=== PATIENT | male | born 1980 | race Caucasian/White ===

== ENCOUNTER 2023-09-18 06:14 | Day surgery (SDC) | payer OTHER, SELFPAY ==
--- NOTE | 2023-07-09 13:18 | CM ---
Addendum entered by Ling Lewis 09/03/23 09:13:
Patient's surgery date has changed to 09/18/23.
Original Note:
Patient is scheduled for lumbar spine surgery on 07/17/23. Spoke with patient prior to surgery via telephone. Introduced role of the Orthopedic Navigator. Patient reports that he lives with his and three sons in a two story home. There are two
steps to enter and a flight of steps to the second floor. He currently functions independently. He has a back brace. He has never had VN services. PCP is Fariba Rhodes.
Discussed orthopedic program, post surgical plans and tentative plan for patient to return home when directed by surgeon. Patient is in agreement with tentative plan and will have support from his when he goes home.
Plan: Orthopedic Navigator will remain available to assist with the care of patient and will reassess discharge needs after surgery.
[2023-07-11 10:53] LABS: Hematocrit 43.3 % (39.0-52.0); Hemoglobin 14.8 g/dL (13.0-18.0); Mean Corp Hgb Conc. 34.2 g/dL (33.0-37.0); Mean Corpuscular Hgb 28.5 pg (27.0-31.0); Mean Corpuscular Volume 83.3 fL (80.0-94.0); Mean Platelet Volume 9.5 fL (7.4-10.4); Platelet Count 241 10^3/uL (130-400); Red Cell Dist. Width 13.8 % (11.5-14.5); White Blood Cell Count 5.8 10^3/uL (4.8-10.8)
[2023-07-11 11:03] LABS: ALT (SGPT) 49 U/L (0-50); AST (SGOT) 47 U/L (17-59); Albumin 4.2 g/dl (3.5-5.0); Alkaline Phosphatase 58 U/L (38-126); Blood Urea Nitrogen 17 mg/dl (9-20); Calcium 9.2 mg/dl (8.4-10.2); Carbon Dioxide 26 mmol/L (22-30); Chloride 100 mmol/L (98-107); Glucose 62 mg/dl (70-99); INR 0.95; PT 12.9 Sec (11.4-14.6); Potassium 4.5 mmol/L (3.5-5.1); Sodium 135 mmol/L (135-145); Total Bilirubin 0.8 mg/dl (0.2-1.3); Total Protein 7.2 g/dl (6.3-8.2); eGFR > 60.00
[2023-07-11 12:31] VITALS: BMI 29.3
[2023-07-11 15:25] VITALS: BMI 29.3
--- NOTE | 2023-07-16 08:24 | W.PREADMORTH ---
Ortho Preadmission Testing
-
Surgery cancelled for 07/17/23 due to insurance issues.
--- NOTE | 2023-09-07 13:53 | HPS.HSE ---
Family Physician
<Corrie Stevens PA-C - Last Filed: 09/07/23 13:59>
-
Family Physician: Fariba Rhodes DO
Chief Complaint
<Corrie Stevens PA-C - Last Filed: 09/07/23 13:59>
-
Lumbar disc herniation with radiculopathy.
History of Present Illness
43 yo male presenting today for a lumbar disc herniation with radiculopathy.
The patient reports a longstanding history of low back pain with
radiating right lower extremity pain secondary to this diagnosis. He
notes that his current pain is greatly interfering with his activities of
daily living and is overall impacting his quality of life. He has tried and
failed multiple conservative treatment measures in the past for his
pain. These conservative treatment measures include self-therapeutic
exercises, activity modification, medical management with Tylenol
and Meloxicam as needed, and the application of ice and/or heat.
Recent MRI findings of the lumbar spine confirmed a L4-L5 right
foraminal disc bulge with mild to moderate right foraminal stenosis.
He was determined to be in need of an L3-L4 laminectomy and
discectomy. He denies any current complaints today such as chest
pain, shortness of breath, palpitations, nausea, vomiting, diarrhea,
lightheadedness, dizziness, cough, sore throat, or fever.
�
<Myranda Quintana DO - Last Filed: 09/16/23 12:10>
History of Present Illness
43 yo male presenting today for a lumbar disc herniation with radiculopathy.
The patient reports a longstanding history of low back pain with
radiating right lower extremity pain secondary to this diagnosis. He
notes that his current pain is greatly interfering with his activities of
daily living and is overall impacting his quality of life. He has tried and
failed multiple conservative treatment measures in the past for his
pain. These conservative treatment measures include self-therapeutic
exercises, activity modification, medical management with Tylenol
and Meloxicam as needed, and the application of ice and/or heat.
Recent MRI findings of the lumbar spine confirmed a L4-L5 right
foraminal disc bulge with mild to moderate right foraminal stenosis.
He was determined to be in need of an L4-L5 laminectomy and
discectomy. He denies any current complaints today such as chest
pain, shortness of breath, palpitations, nausea, vomiting, diarrhea,
lightheadedness, dizziness, cough, sore throat, or fever.
�
Medical History
<Corrie Stevens PA-C - Last Filed: 09/07/23 13:59>
Past Medical History
Past Medical History: Reports Other (see below)
Additional Past Medical History:
1. Lumbar herniated disc with radiculopathy.
2. Sinus bradycardia, asymptomatic.
3. PVCs with occasional palpitations.
4. Bicuspid aortic valve, asymptomatic.
5. Mild aortic insufficiency.
6. GERD.
7. Hiatal hernia.
8. Hemorrhoids, status post hemorrhoidal banding.
9. Hypothyroidism.
10. Anxiety.
11. Hypoglycemia.
12. History of tobacco abuse.
�
�
Past Surgical History: Reports Other (see below)
Additional Past Surgical History:
1. Left shoulder arthroscopy.
2. Hemorrhoidal banding.
3. Vasectomy.
4. Endoscopy.
Social History
Tobacco: Former Smoker
Alcohol: None
Family History
Family History: Not pertinent
Allergies / Home Medications
Allergies reflects when Allergies were last updated in [facility].
Home Medications with original date entered in [facility]
Allergy/Medication List:
MEDICATIONS:
1. Cetirizine 10 mg p.o. every evening.
2. Cholecalciferol 50 mcg p.o. daily.
3. Nexium 40 mg p.o. daily.
4. Famotidine 40 mg p.o. at bedtime.
5. Finasteride 1 mg p.o. daily.
6. Gabapentin 300 mg p.o. twice a day as needed.
7. Lorazepam 0.5-1 mg p.o. daily as needed.
8. Low thyroid medication one tablet p.o. daily.
9. Magnesium 250 mg p.o. every evening.
10. Meloxicam 15 mg p.o. daily as needed.
11. Multivitamin one tablet p.o. daily.
12. Testosterone 0.6 mL subcu every 72 hours.
�
ALLERGIES:� Seasonal. No known drug allergies.
Review of Systems
<Corrie Stevens PA-C - Last Filed: 09/07/23 13:59>
-
A 12 point ROS was completed and negative except as noted: Yes
Physical Exam
<Corrie Stevens PA-C - Last Filed: 09/07/23 13:59>
Vital Signs
VSS
Physical Exam
General: Well Developed and Well Nourished
HEENT: NormoCephalic
Respiratory: Clear
Cardiac: S1/S2 and Regular Rhythm
GI: Soft, Non Tender and Normal Bowel Sounds
Musculoskeletal: Other (EXTREMITIES/BACK EXAM: Lower back with normal appearance. No visible or palpable masses. No step-offs. He does have minimal low back tenderness to palpation. Positive straight leg raise on the right. 5/5 strength of the right
hip flexors and quadriceps. 5/5 strength all other muscle groups. Deep ten)
Neuro: Awake, AO x 3 and Cranial Nerves Intact
Laboratory Results
<Corrie Stevens PA-C - Last Filed: 02/02/24 13:59>
-
Laboratory Results
PT 12.9 Sec (11.4-14.6) 07/11/23 09:56
INR 0.95 07/11/23 09:56
Total Bilirubin 0.8 mg/dl (0.2-1.3) 07/11/23 09:56
AST 47 U/L (17-59) 07/11/23 09:56
ALT 49 U/L (0-50) 07/11/23 09:56
Alkaline Phosphatase 58 U/L (38-126) 07/11/23 09:56
Impression/Plan
<Corrie Stevens PA-C - Last Filed: 09/07/23 13:59>
-
EKG 07/11/2023: Normal sinus rhythm. Early repolarization.
�
Echocardiogram 08/15/2022: Ejection fraction 60-65 percent. Ascending
aorta is mildly dilated at 3.9 cm. A bicuspid aortic valve with peak
and mean gradients of 19 and 9 mmHg respectively. Aortic valve area
of 2.2 cm2. No hemodynamically significant aortic stenosis as the
DVI is 0.7. Mild aortic insufficiency,
�
CLEARANCES:
1. [facility] medical, Corey Henao PA-C, pending.
� � [facility] medical phone number: [phone].
2. Dental waived.
�
IMPRESSION/PLAN:
1. Lumbar herniated disc with radiculopathy in need of L3-L4
� � laminectomy and discectomy with Dr. Myranda Quintana.
� � The benefits and risks of the procedure have been explained to
� � the patient. The patient understands these risks and wishes to
� � proceed.
2. DVT prophylaxis: Bilateral sequential compression devices and
� � JOSTIN hose stockings. We will promote frequent and early
� � ambulation as tolerated during admission.
3. Hypoglycemia: An Accucheck will be ordered for the morning
� � of his procedure. The patient was advised to carry candy
� � or have juice nearby in the event he feels symptomatic.
Patient's phone number: [phone].
Patient's contact (Sheree Dailey - Spouse): [phone].
<Myranda Quintana, - Last Filed: 09/16/23 12:10>
-
EKG 07/11/2023: Normal sinus rhythm. Early repolarization.
�
Echocardiogram 08/15/2022: Ejection fraction 60-65 percent. Ascending
aorta is mildly dilated at 3.9 cm. A bicuspid aortic valve with peak
and mean gradients of 19 and 9 mmHg respectively. Aortic valve area
of 2.2 cm2. No hemodynamically significant aortic stenosis as the
DVI is 0.7. Mild aortic insufficiency,
�
CLEARANCES:
1. [facility], Corey Henao PA-C, pending.
� � [facility] phone number: [phone].
2. Dental waived.
�
IMPRESSION/PLAN:
1. Lumbar herniated disc with radiculopathy in need of L4-L5
� � laminectomy and discectomy with Dr. Myranda Quintana.
� � The benefits and risks of the procedure have been explained to
� � the patient. The patient understands these risks and wishes to
� � proceed.
2. DVT prophylaxis: Bilateral sequential compression devices and
� � JOSTIN hose stockings. We will promote frequent and early
� � ambulation as tolerated during admission.
3. Hypoglycemia: An Accucheck will be ordered for the morning
� � of his procedure. The patient was advised to carry candy
� � or have juice nearby in the event he feels symptomatic.
Patient's phone number: [phone].
Patient's contact (Sheree Dailey - Spouse): [phone].
[2023-09-07 14:05] VITALS: BMI 29.3
[2023-09-07 14:23] LABS: Hematocrit 42.5 % (39.0-52.0); Hemoglobin 14.3 g/dL (13.0-18.0); Mean Corp Hgb Conc. 33.6 g/dL (33.0-37.0); Mean Corpuscular Hgb 27.9 pg (27.0-31.0); Mean Corpuscular Volume 82.8 fL (80.0-94.0); Mean Platelet Volume 9.6 fL (7.4-10.4); Platelet Count 272 10^3/uL (130-400); Red Blood Cell Count 5.13 10^6/uL (4.70-6.10); Red Cell Dist. Width 13.2 % (11.5-14.5); White Blood Cell Count 6.8 10^3/uL (4.8-10.8)
[2023-09-07 14:31] LABS: INR 1.01; PT 13.1 Sec (11.4-14.6)
[2023-09-07 14:46] LABS: ALT (SGPT) 30 U/L (0-50); AST (SGOT) 32 U/L (17-59); Albumin 3.8 g/dl (3.5-5.0); Alkaline Phosphatase 52 U/L (38-126); Blood Urea Nitrogen 18 mg/dl (9-20); Calcium 9.3 mg/dl (8.4-10.2); Carbon Dioxide 29 mmol/L (22-30); Chloride 99 mmol/L (98-107); Estimated Creatinine Clearance 115 ml/min; Glucose 88 mg/dl (70-99); Potassium 4.5 mmol/L (3.5-5.1); Sodium 135 mmol/L (135-145); Total Bilirubin 0.6 mg/dl (0.2-1.3); Total Protein 6.9 g/dl (6.3-8.2); eGFR > 60.00
[2023-09-07 15:30] VITALS: BMI 29.3
[2023-09-18] VITALS (14 sets, daily range): BP systolic 65–145; BP diastolic 42–90; PULSE 72; BMI 29.3
[2023-09-18 07:22] LABS: Glucose - Point of Care 86 mg/dl (70-99)
[2023-09-18] MEDS: NORMOSOL-R 1000 IV ×3 (07:27→23:17)
--- NOTE | 2023-09-18 12:24 | W.PN.UPDATE ---
Update Note
Progress Note Update
Orthopedic Surgery Post-Operative Update Note:
Patient is status post L4-5 laminectomy with microdiscectomy and foraminotomy. He is currently in PACU, moving all extremities, wiggling toes. Sensation grossly intact in lower extremity.
Plan:
May ambulate once in his room with assistance. PT/OT.
LSO (back brace) when ambulating
No bending, lifting or twisting
Post-op antibiotics
Pain control
DVT ppx: SCDs, no anticoagulation for 24 hrs post op
Bowel regimen
Myranda Quintana DO
Orthopedic Surgery
[2023-09-18] MEDS: DILAUDID 0.25 MG IV ×2 (12:50→12:56)
--- NOTE | 2023-09-18 13:49 | PTCARENOTE ---
Pt arrived to 2S in bed. Full assessment completed. B/L upper and lower neurovascular assessment WDL. Lower back DSG C/D/I. IVF initiated. Telemetry applied. Bed locked and in the lowest position, safety maintained. Oriented to room and call beltran.
[2023-09-18] MEDS: ANCEF 5 IV ×2 (15:03→23:17)
[2023-09-18] MEDS: ULTRAM 50 MG PO ×3 (15:04→23:18)
[2023-09-18] MEDS: SKELAXIN 800 MG PO ×2 (15:04→23:17)
[2023-09-18] MEDS: ZYRTEC 10 MG PO (17:00)
[2023-09-18] MEDS: TYLENOL 1000 MG PO ×2 (17:00→23:17)
[2023-09-18] MEDS: ROXICODONE 5 MG PO (18:21)
[2023-09-18] MEDS: LYRICA 75 MG PO (20:30)
[2023-09-18] MEDS: SENOKOT 17.1999999999999993 MG PO (20:31)
[2023-09-18] MEDS: COLACE 100 MG PO (20:31)
[2023-09-18] MEDS: ATIVAN 0.5 MG PO (20:32)
[2023-09-18] MEDS: PEPCID 40 MG PO (20:45)
--- NOTE | 2023-09-18 20:51 | OR.RPT ---
Operative Report
Operative Report
Orthopedic Surgery Operative Report
Date of Surgery: 09/18/23
PREOPERATIVE DIAGNOSES:
1. Lumbar right lateral recess and foraminal stenosis with radiculopathy, L4-L5
POSTOPERATIVE DIAGNOSES:
1. Lumbar right lateral recess and foraminal stenosis with radiculopathy, L4-L5
PROCEDURE PERFORMED:
1. L4-5 laminectomy and right lateral recess decompression with microdiscectomy and right foraminotomy
SURGEON: Myranda Quintana D.O.
SUPERVISOR TWISTING DEPARTMENT: TOY Schmidt, who helped with patient and limb positioning and retraction
ANESTHESIA: General endotracheal
COMPLICATIONS: None
ESTIMATED BLOOD LOSS: 30 cc
DRAINS: None
SPECIMEN: L4-5 disc material sent to pathology
IMPLANTS: None
INDICATION FOR SURGERY: This patient has an ongoing history of right lower extremity radiculopathy as well as subjective weakness when participating in high impact activities. Evaluation shows that the patient has the aforementioned diagnoses. The
patient has failed extensive nonsurgical treatment and has elected to undergo the aforementioned surgical procedures. The risks, benefits, alternatives, and indications were discussed with the patient in detail. The risks include, but are not
limited to bleeding requiring transfusion, infection, need for reoperation, nerve or blood vessel damage, anesthetic risks, need for further surgery, continued pain, blood clots in the legs, heart attack, stroke, , dural tear, nerve root
injury, graft migration, pseudoarthrosis, continued pain, continued numbness, continued weakness, paralysis. The patient understands the risks and elected to proceed. Informed consent was obtained preoperatively. The patient was optimized
medically prior to surgery.
PROCEDURE IN DETAIL: The patient was identified in the preoperative holding area. The surgical site was appropriately marked. The patient was then brought to the operating room. General endotracheal anesthesia was achieved. The patient was
given routine preoperative intravenous antibiotics. The patient was turned to the prone position. Great care was taken to pad and protect all extremities and pressure points. The incision site was marked using fluoroscopy. The patient was prepped
and draped in the usual sterile manner. A preoperative surgical time-out was taken.
A standard midline approach to the lumbar spine was performed. The dissection was carried out to the spinal lamina. Dissection was then carried out laterally to expose the medial aspect of the right L4-5 facet. Xray was obtained to confirm levels.
Laminectomy was then carried out at L4-5. A partial right medial facetectomy was carried out. Hypertrophic ligamentum flavum was removed. Extensive scarred soft tissue was noted to be present in the right lateral recess. This tissue was carefully
freed and removed from the dura as well as the traversing and exiting nerve roots. This tissue was also present in the right L4-5 foramen. As much of this scarred tissue as could safely be removed from the foramen was removed. Additionally, a right
L4-5 foraminotomy was performed using Kerrison rongeurs. The thecal sac and traversing nerve root were retracted to visualize the disc space. The disc space was incised using a 15-blade. Disc material was then removed and sent to lab as a specimen.
After the offending disc was removed, the disc space was irrigated. The decompression was once again checked and the thecal sac, traversing root and exiting root were found to be adequately decompressed.
The surgical site was copiously irrigated. 40 mg of kennalog was placed over the thecal sac and nerve roots at L4-5. The muscle was approximated using vicryl suture. Fascia was closed using #1 stratafix suture. Vancomycin powder was placed. The deep
and superficial subcutaneous tissues were closed using vicryl suture. Skin was approximated with nehemias. A sterile dressing was placed. The patient was turned to the supine position and awoken from anesthesia. The patient tolerated the procedure
well with no immediate complications.
Throughout the surgery, neuromonitoring was used. All counts were correct at the end of the surgery.
Myranda Quintana D.O.
Orthopedic Surgery
[2023-09-19] MEDS: ULTRAM 50 MG PO ×2 (02:55→08:21)
[2023-09-19 03:00] VITALS: BP 113/64
[2023-09-19 06:21] LABS: Hemoglobin 12.8 g/dL (13.0-18.0)
[2023-09-19] MEDS: TYLENOL 1000 MG PO (06:24)
[2023-09-19 06:42] LABS: Blood Urea Nitrogen 14 mg/dl (9-20); Calcium 8.2 mg/dl (8.4-10.2); Carbon Dioxide 29 mmol/L (22-30); Chloride 105 mmol/L (98-107); Estimated Creatinine Clearance > 125 ml/min; Glucose 92 mg/dl (70-99); Potassium 4.3 mmol/L (3.5-5.1); Sodium 135 mmol/L (135-145); eGFR > 60.00
[2023-09-19 07:58] VITALS: BP 108/66
[2023-09-19] MEDS: SENOKOT 17.1999999999999993 MG PO (08:20)
[2023-09-19] MEDS: PROTONIX 40 MG PO (08:20)
[2023-09-19] MEDS: SKELAXIN 800 MG PO (08:20)
[2023-09-19] MEDS: ATIVAN 0.5 MG PO (08:21)
[2023-09-19] MEDS: LYRICA 75 MG PO (08:21)
[2023-09-19] MEDS: COLACE 100 MG PO (08:21)
[2023-09-19] MEDS: NORMOSOL-R 1000 IV (08:22)
--- NOTE | 2023-09-19 09:04 | CM ---
Reviewed chart and held rounds with PT, OT and RN. Patient had planned lumbar spine surgery with on 09/18/23. Met with patient at bedside. Confirmed information previously obtained for assessment and discussed discharge plans. Patient
continues to plan to return home at discharge. He will have support from his when he goes home. Reviewed that he will work with PT/OT this morning and that discharge needs will depend on his functional status. However, no needs currently
identified.
Patient has his back brace in room.
Patient will use [facility] pharmacy for discharge prescriptions.
[2023-09-19 09:21] VITALS: BP 132/79; PULSE 57; O2SAT 100
[2023-09-19 09:24] VITALS: BP 132/79; PULSE 56; O2SAT 100
--- NOTE | 2023-09-19 09:29 | PTOTSP ---
Pt is independent with bed mobility, transfers, and ambulation without an assistive device on level surface and elevations. No further skilled PT needs are identified. Ok for dc to home today from PT standpoint. PT will sign off.
--- NOTE | 2023-09-19 10:25 | W.PN.ORTHO ---
Today's Communication / Plan
-
d/c
Assessment
.
Distal Motor Intact: Yes
Dressing:
Clean, dry and intact.
Assessment:
L4-5 laminectomy and right lateral recess decompression with microdiscectomy and right foraminotomy
Plan
.
Surgery / Date: 09/18/23 Dr. Quintana
Activity:
Out of bed.
PT/OT
Discharge Plan: Home
Subjective
.
.:
Patient resting comfortably.
Vital Signs and Labs
.
Vital Signs and Labs:
Lab Results
09/19/23 05:13
09/19/23 05:13
Temp Pulse Resp BP Pulse Ox
97.6 F 60 18 108/66 99
09/19/23 07:58 09/19/23 07:58 09/19/23 07:58 09/19/23 07:58 09/19/23 07:58
PT 13.1 Sec (11.4-14.6) 09/07/23 13:15
INR 1.01 09/07/23 13:15
Physical Exam
-
HEENT: No pallor, cyanosis, or jaundice. Throat clear.
NECK: Supple. No JVD.
RESPIRATORY: Lungs clear to auscultation.
CVS: S1, S2 normal. RRR.� No murmur, rub or gallop.
ABDOMEN: Soft, non-tender. No distension. BS+/normal.
EXTREMITIES: strength equal, no calf pain with palpation
STAFFING CLERK: AOx3. No focal deficits. bell cleaner grossly intact
--- NOTE | 2023-09-19 10:26 | W.DS.TRANS ---
DC Summary - Elastic Tape Inserter
-
Discharge Instructions:
Sleep Apnea Risk Low
Discharge Diagnosis/Procedures L4-5 laminectomy and right lateral recess
decompression with microdiscectomy and right
foraminotomy-Dr. Quintana 09/18/23
Diet No restrictions
Activity No strenuous activity
Driving Restrictions No driving
Instructions:
Stand-Alone Forms: [facility] Lumbar Spine DC Instr
Changes to Home Medications: Yes
Discharge Medications:
DC Medications w/original date entered in [facility]
Low Thyroid Medication 1 tab PO DAILY 05/12/23
esomeprazole magnesium 40 mg capsule,delayed release (Nexium) 40 mg PO DAILY 05/12/23
finasteride 1 mg tablet (Propecia) 1 mg PO DAILY 05/12/23
Testerone 0.6 ml SC Q72H 07/10/23
cetirizine 10 mg tablet (Zyrtec) 10 mg PO QPM 07/10/23
cholecalciferol (vitamin D3) 50 mcg (2,000 unit) tablet (Vitamin D3) 50 mcg PO DAILY 07/10/23
famotidine 40 mg tablet 40 mg PO HS 07/10/23
magnesium 250 mg tablet 250 mg PO QPM 07/10/23
multivitamin 1 tab PO DAILY 07/10/23
lorazepam 1 mg tablet 0.5 - 1 mg PO DAILY PRN anxiety 07/11/23
gabapentin 300 mg capsule 300 mg PO BID PRN pain 09/04/23
mupirocin 2 % topical ointment 1 applic topical BID infection prevention #1 tube 09/07/23
Medical Marajuana 1 tab PO DAILYPRN PRN sleep 09/18/23
acetaminophen 325 mg capsule (Tylenol) 650 mg PO QID #2 caps 09/19/23
cyclobenzaprine 5 mg tablet 5 mg PO BID muscle pain/sleep #30 tabs 09/19/23
dexamethasone 4 mg tablet 4 mg PO BID inflammation #6 tabs 09/19/23
docusate sodium 100 mg capsule (Colace) 100 mg PO BID stool softner #1 cap 09/19/23
magnesium hydroxide 400 mg/5 mL oral suspension (Milk of Magnesia) 30 ml PO HS PRN Constipation #1 mL 09/19/23
oxycodone 5 mg tablet 5 - 10 mg PO Q6HPRN PRN 1 tab moderate-2 tabs severe pain #30 tabs 09/19/23
sennosides 8.6 mg tablet (Senokot) 17.2 mg PO BID laxative #2 tabs 09/19/23
Home Medication Changes
cyclobenzaprine 5 mg tablet 5 mg PO BID muscle pain/sleep #30 tabs 09/19/23
dexamethasone 4 mg tablet 4 mg PO BID inflammation #6 tabs 09/19/23
oxycodone 5 mg tablet 5 - 10 mg PO Q6HPRN PRN 1 tab moderate-2 tabs severe pain #30 tabs 09/19/23
Pending Results: No
[2023-09-19] MEDS: TYLENOL PO (12:13)
[2023-09-19] MEDS: ULTRAM PO (12:14)
== END 2023-09-19 12:36 | disposition home or self-care (01) ==
LOC: SDS 06:14
PROVIDERS: Physician Assistant Medical; ATTENDING PHYSICIAN Orthopaedic Surgery; FAMILY PHYSICIAN Family Medicine; OTHER PHYSICIAN Internal Medicine Cardiovascular Disease
DX: M48.061 Spinal stenosis, lumbar region without neurogenic claudication (principal); M54.16 Radiculopathy, lumbar region
CPT/HCPCS: 63030; 88304; 36415; 72100; 76000; 80048; 80053; 82962; 85014; 85018; 85027; 85610; 86850; 86900; 86901; 87070; 93005; 97161; 97165; 97530

== ENCOUNTER 2024-06-26 06:19 | Day surgery (SDC) | payer OTHER, SELFPAY | END 2024-06-26 15:51 | disposition home or self-care (01) | LOC: GI 06:19 | PROVIDERS: ATTENDING PHYSICIAN Internal Medicine | DX: Z12.11 Encounter for screening for malignant neoplasm of colon (principal); K64.8 Other hemorrhoids; K63.5 Polyp of colon | CPT/HCPCS: 45380; 88305 ==

== ENCOUNTER 2024-09-25 06:11 | Day surgery (SDC) | payer OTHER, SELFPAY | END 2024-09-25 10:22 | disposition home or self-care (01) | LOC: GI 06:11 | PROVIDERS: ATTENDING PHYSICIAN Internal Medicine | DX: R12 Heartburn (principal); R14.0 Abdominal distension (gaseous); K22.89 Other specified disease of esophagus; K44.9 Diaphragmatic hernia without obstruction or gangrene | CPT/HCPCS: 43239; 88305; 88342 ==

== ENCOUNTER → 2024-09-26 14:26 | Outpatient (REF) | payer OTHER, SELFPAY | LOC: HWRAD 14:26 | PROVIDERS: ATTENDING PHYSICIAN Internal Medicine; FAMILY PHYSICIAN Family Medicine | DX: R74.8 Abnormal levels of other serum enzymes (principal) | CPT/HCPCS: 76700 ==

== ENCOUNTER → 2024-10-07 07:44 | Outpatient (REF) | payer OTHER, SELFPAY | LOC: EMG 07:44 | PROVIDERS: ATTENDING PHYSICIAN Physical Medicine & Rehabilitation | DX: M54.16 Radiculopathy, lumbar region (principal); R20.0 Anesthesia of skin | CPT/HCPCS: 95886; 95910 ==

== ENCOUNTER → 2025-07-14 08:35 | Outpatient (REF) | payer OTHER, SELFPAY | LOC: RAD 08:35 | PROVIDERS: ATTENDING PHYSICIAN Internal Medicine; FAMILY PHYSICIAN Student in an Organized Health Care Education/Training Program | DX: K21.9 Gastro-esophageal reflux disease without esophagitis (principal) | CPT/HCPCS: 74221 ==

== ENCOUNTER → 2025-07-27 14:44 | Outpatient (REF) | payer OTHER, SELFPAY | LOC: DHSLP 14:44 | PROVIDERS: ATTENDING PHYSICIAN Student in an Organized Health Care Education/Training Program | DX: G47.33 Obstructive sleep apnea (adult) (pediatric) (principal); R09.02 Hypoxemia | CPT/HCPCS: 95800 ==